=== PATIENT | male | born 1990 | race American Indian/Alaskan Native ===

== ENCOUNTER 2019-08-25 19:07 | Emergency (ER) | payer SELFPAY ==
[~2019-08-25] VITALS: Ht 182.9 cm; Wt 72.7 kg
[2019-08-25 19:11] VITALS: BP 152/93; TEMP 98
[2019-08-25 20:03] LABS: STREP SCREEN NEGATIVE
[2019-08-25] MEDS ORDERED: PREDNISONE20 MG PO (21:02)
[2019-08-25 21:25] VITALS: PULSE 95
[2019-08-26] MEDS ORDERED: ZITHROMAX Z PA250 MG PO (18:36)
== END 2019-08-25 21:25 | disposition home or self-care (01) ==
LOC: COL.ER 19:07
PROVIDERS: Emergency Medicine
DX: T78.40XA Allergy, unspecified, initial encounter (principal); J02.9 Acute pharyngitis, unspecified
CPT/HCPCS: J1100; J1200; J2930; J7030

== ENCOUNTER 2019-08-26 18:01 | Emergency (ER) | payer SELFPAY ==
[~2019-08-26] VITALS: Ht 185.4 cm; Wt 72.7 kg
[~2019-08-26 18:01] MED LIST: PREDNISONE20 MG PO
[2019-08-26 18:08] VITALS: BP 127/73; TEMP 97.8
[2019-08-26] MEDS ORDERED: ZITHROMAX Z PA250 MG PO (18:36)
[2019-08-26 19:00] VITALS: PULSE 78
== END 2019-08-26 19:01 | disposition home or self-care (01) ==
LOC: COL.ER 18:01
DX: J02.9 Acute pharyngitis, unspecified (principal); Z79.52 Long term (current) use of systemic steroids